=== PATIENT | female | born 1930 | race Caucasian/White ===

== ENCOUNTER → 2018-11-20 | Day surgery (SDC) | payer MEDICARE, MEDICAID ==
[~2018-11-20] MED LIST: ARICEPT 5 MG TAB5 MG PO; ASPIR 8181 M1 PO; CINNAMON500 MG PO; COLACE100 MG PO; FEOSOL45 M1 PO; FIBER500 MG PO; MIRALAX17 GM PO; MULTIVITAMINS1 EAC7 PO; NORCO 5-325 TA1 EAC1 PO; NORVASC10 MG PO; PEPCID20 MG PO; PROBIOTIC1 EAC1 PO; PROLIA60 MG/1 ML SUBQ; REMERON 30 MG T30 MG PO; SIMVASTATIN40 MG PO; SINEMET 25-1001 EAC1 PO; SINEMET 25-2501 EAC1 PO; TUMS PO; VITAMIN B125000 MCG PO; VITAMIN D32000 UNI1 PO; VITAMIN E400 UNI2 PO
[2018-11-20 09:33] LABS: HEMATOCRIT 33.1 % (37.0-47.0); HEMOGLOBIN 11.2 gm/dL (12.0-15.0); MCH 32.3 pg (26.0-34.0); MCHC 33.8 g/dL (28.0-37.0); MCV 95.7 fL (80.0-100.0); MPV 7.6 fl. (7.2-11.1); RBC 3.46 mil/uL (4.20-5.00); RDW-CV 14.4 % (10.5-14.5); WBC 7.7 thou/uL (4.0-11.0)
[2018-11-20 09:41] LABS: CALCIUM 9.4 mg/dL (8.5-10.1); CREATININE 2.5 mg/dL (0.6-1.3); POTASSIUM 4.5 mmol/L (3.5-5.1)
[2018-11-20 09:45] LABS: TOTAL BILIRUBIN 0.4 mg/dL (<0.1-1.0); TOTAL PROTEIN 6.3 g/dL (6.4-8.2)
--- NOTE | 2018-11-20 10:11 | EKG ---
[place] [address] ELECTROCARDIOGRAM REPORT Name: NINAAMY JANNETTE Room: [facility]#: [id number] Admission: 11/20/18 Attend Phys: Andrei Jarrett II Discharge: Date of : [birth year] Report #: [id number] THIS REPORT FOR: //name// [facility] Test Date: 2018-11-20 Test Time: 09:32:27 Pat Name: AMY WOOD Department: Room: Gender: F Materials Assistant: : 1930 Requested By: Andrei Jarrett Order Number: [id number] Lorri MD: Yusef Steward Measurements Intervals [place] Rate: 73 P: 66 NE: 127 QRS: 54 QRSD: 76 T: 86 QT: 387 QTc: 427 Interpretive Statements Sinus rhythm No previous ECG available for comparison Electronically Signed On 11-20-2018 10:11:12 CDT by Yusef Steward [email or web address] <ELECTRONICALLY SIGNED> By: Yusef Steward MD, [facility] 11/20/18 1011 0932 0932 Yusef Steward MD, FACC /EPI
--- NOTE | 2018-11-27 11:58 | OP ---
[address] [address] OPERATIVE REPORT Name: NINAAMY JANNETTE Room: [facility]#: [id number] Admission: 11/20/18 Attend Phys: Andrei Jarrett II Discharge: Date of : [birth year] Report #: [id number] THIS REPORT FOR: //name// CC: Anjelica Jarrett DATE OF SERVICE: 11/20/2018 PREOPERATIVE DIAGNOSIS: Right distal radius fracture, greater than 3 parts. POSTOPERATIVE DIAGNOSIS: Right distal radius fracture, greater than 3 parts. PROCEDURE: Open reduction and internal fixation of right distal radius fracture, greater than 3 parts. SURGEON: Andrei Jarrett II, DO. WATER QUALITY TECHNICIAN: YOHANA Comer. ANESTHESIA: Per operative record. ESTIMATED BLOOD LOSS: Minimal. ANTIBIOTICS: Per operative record. DRAINS: None. COMPLICATIONS: None. CONDITION: Stable to recovery room. IMPLANTS USED: Mook distal radius plate with appropriate locking and nonlocking screws. DESCRIPTION OF PROCEDURE: The patient was taken to the operative suite and placed supine on the OR table in appropriate anesthesia. The patient was well padded and tourniquet applied to the upper extremity, which was inflated to 250 mmHg after Esmarch exsanguination for duration of procedure. The arm was sterilely prepped and draped. Surgery began by a midline incision over the FCR tendon region of the wrist. This was carried down to the subcutaneous tissues. The tendon was retracted radially and the subcuticular tissues were split down to the pronator, which was reflected off of the bone. The fracture was then evaluated with the C-arm and reduced with a [place] and a dental pick in a near anatomic alignment of all separate fracture fragments within the comminuted distal radius portion. It was then held with K-wire and the plate was applied. The sliding screw was applied and the plate was [place] [address] OPERATIVE REPORT Name: NINAAMY JANNETTE Room: [facility]#: [id number] Admission: 11/20/18 Attend Phys: Andrei Jarrett II Discharge: Date of : [birth year] Report #: [id number] appropriate location. Appropriate locking and nonlocking screws then placed through the fracture fragments as well as the proximal fragment to secure this in appropriate position. The wound was then copiously irrigated. Final images were taken with C-arm, which showed excellent anatomic reduction of the distal radius fracture with multiple fragments. The pronator was then reflected back over the plate and sutured into place. Subcuticular layer was closed with 2-0 Vicryl and the skin was closed with running Monocryl stitch. Dermabond and sterile dressing as well as a volar splint were applied. The patient was transported to recovery room in stable condition. Counts were correct throughout the procedure. <ELECTRONICALLY SIGNED> By: Andrei Jarrett II, DO 11/27/18 1158 [id number] Jarrett II, DO /nt
== END | disposition home or self-care (01) ==
LOC: M.SUR 08:00
PROVIDERS: Orthopaedic Surgery
DX: S52.571A Other intraarticular fracture of lower end of right radius, initial encounter for closed fracture (principal); Z79.899 Other long term (current) drug therapy; Z79.82 Long term (current) use of aspirin; X58.XXXA Exposure to other specified factors, initial encounter; Y93.89 Activity, other specified; Y92.89 Other specified places as the place of occurrence of the external cause; Y99.8 Other external cause status